=== PATIENT | female | born 1955 | race Caucasian/White ===

== ENCOUNTER 2017-11-11 08:14 | Emergency (ER) | payer OTHER ==
[~2017-11-11] VITALS: Ht 157.5 cm; Wt 59.9 kg
[~2017-11-11 08:14] MED LIST: ADULT LOW DOSE81 MG PO; ALDACTONE25 MG PO; ATIVAN0.5 MG PO; ATIVAN1 MG PO; AUGMENTIN 875875 MG PO; CALCIUM 500 +1 EAC5 PO; CALCIUM 500 WI1 EAC4 PO; CARVEDILOL3.125 MG PO; CARVEDILOL6.25 MG PO; CIPROFLOXACIN500 M1 PO; GLUCOPHAGE500 MG PO; IBUPROFEN 600600 M1 PO; K-DUR 20 MEQ T20 MEQ PO; LASIX 20 MG TAB20 MG PO; METFORMIN HCL500 MG PO; NORCO 5-325 TA1 EACH PO; OXYCODONE HCL 55 MG PO; PERCOCET PO; POTASSIUM20 PO; PRILOSEC 20 MG20 MG PO; PRILOSEC40 MG PO; PROAIR HFA8.5 GM INH; SLOW-MAG64 MG PO; VENTOLIN HFA 1818 GM INH; VITAMIN B-1100 M1 PO; ZOFRAN4 MG PO
[2017-11-11 08:53] LABS: BASOPHILS 0.4 % (0.0-2.0); EOSINOPHILS 0.8 % (0.0-3.0); HEMATOCRIT 47.7 % (37.0-47.0); HEMOGLOBIN 15.9 gm/dL (12.0-15.0); LYMPHOCYTES 9.9 % (24.0-44.0); MCH 32.1 pg (26.0-34.0); MCHC 33.3 g/dL (28.0-37.0); MCV 96.4 fL (80.0-100.0); MONOCYTES 6.5 % (1.0-8.0); POLYS 82.4 % (36.0-66.0); RBC 4.95 mil/uL (4.20-5.00); RDW 15.1 % (10.5-14.5); WBC 4.8 thou/uL (4.0-11.0)
[2017-11-11 09:00] LABS: CALCIUM 8.3 mg/dL (8.5-10.1); CREATININE 0.9 mg/dL (0.6-1.0); POTASSIUM 4.2 mmol/L (3.5-5.1)
[2017-11-11 09:06] LABS: ALBUMIN 2.7 g/dL (3.4-5.0); DIRECT BILIRUBIN 0.1 mg/dL (<0.1-0.3); TOTAL BILIRUBIN 0.5 mg/dL (<0.1-1.0); TOTAL PROTEIN 7.4 g/dL (6.4-8.2)
[2017-11-11 09:14] LABS: URINE BILIRUBIN NEGATIVE (Negative); URINE BLOOD TRACE (Negative); URINE CLARITY CLEAR; URINE COLOR YELLOW; URINE GLUCOSE-RANDOM* 3+ (Negative); URINE KETONES NEGATIVE (Negative); URINE LEUKOCYTES TRACE (Negative); URINE NITRITE NEGATIVE (Negative); URINE PROTEIN (DIPSTICK) NEGATIVE (Negative); URINE UROBILINOGEN 0.2 E.U./dl (0.2-1.0)
[2017-11-11 09:35] LABS: LARGE PLATELETS FEW; PLATELET COUNT 69 thou/uL (150-400)
[2017-11-11 09:56] LABS: BE(vivo) 6.9 mmol/L (-2 to +3); HCO3 35.5 mmol/L (22.0-26.0); PCO2 66.3 mmHg (35.0-45.0); PO2 61.2 mmHg (80.0-100.0); pH 7.347 (7.360-7.450); sO2 89.5 % (92.0-98.0)
[2017-11-11 10:09] VITALS: BP 141/63
== END 2017-11-11 10:09 | disposition home or self-care (01) ==
LOC: ER 08:14
PROVIDERS: Emergency Medicine
DX: K74.60 Unspecified cirrhosis of liver (principal); D59.9 Acquired hemolytic anemia, unspecified; E11.9 Type 2 diabetes mellitus without complications; J44.9 Chronic obstructive pulmonary disease, unspecified; I10 Essential (primary) hypertension; Z88.1 Allergy status to other antibiotic agents; F17.210 Nicotine dependence, cigarettes, uncomplicated